=== PATIENT | female | born 1970 | race Caucasian/White ===

== ENCOUNTER 2016-05-01 07:27 | Emergency (ER) | payer MEDICAID ==
[~2016-05-01] VITALS: Ht 152.4 cm; Wt 69.0 kg
[2016-05-01 07:34] VITALS: Ht 152.4 cm; Wt 69.0 kg
[2016-05-01 07:46] LABS: URINE BLOOD (Dip) POC Trace-intact (NEGATIVE)
[2016-05-01] MEDS ORDERED: ONDANSETRON (ODT) 4 MG TAB ODT STA (07:47)
--- NOTE | 2016-05-01 07:53 | ERD ---
ER Documentation Chief Complaint Date/Time DATE: 05/01/16 TIME: 07:50 Chief Complaint VAG BLEED DENIES PREG X 1 WEEK HPI 46-year-old female with a history of gastritis presents to the emergency department for lower abdominal pain and intermittent vaginal bleeding for the past week. Patient describes it pain today as a sharp 8 out of 10 constant pain located near the suprapubic region and radiating to her left flank. Patient denies any alleviating factors including positional changes. She states she has not attempted to treat her pain with any medication thus far. Patient denies any nausea, vomiting, diarrhea, vaginal discharge, fever, recent illness, chest pain, shortness of breath she states her last normal period was 3 months ago and normal for her. Last bowel movement was this morning and normal for her. ROS All systems reviewed and are negative except as per history of present illness. Medications Home Meds Active Scripts Ibuprofen* (Motrin*) 600 Mg Tab, 600 MG PO Q6, #30 TAB Prov:EVGENY MOHAMUD PA-C 05/01/16 Metronidazole* (Flagyl*) 500 Mg Tablet, 500 MG PO TID for 5 Days, TAB Prov:EVGENY MOHAMUD PA-C 05/01/16 Allergies Allergies: Coded Allergies: Penicillins (Verified Allergy, Unknown, gastritis and hives, 05/01/16) amoxicillin (Verified Allergy, Unknown, gastritis and hives, 05/01/16) tetracycline (Verified Allergy, Unknown, gastritis and hives, 05/01/16) PMhx/Soc Medical and Surgical Hx: pt denies Medical Hx, pt denies Surgical Hx Physical Exam Vitals Vital Signs Date Time Temp Pulse Resp B/P Pulse Ox O2 Delivery O2 Flow Rate FiO2 05/01/16 07:34 98.0 63 18 120/69 98 Physical Exam Const: Well-nourished, well-developed, nontoxic-appearing, well-hydrated Head: Atraumatic Eyes: Normal Conjunctiva ENT: Normal External Ears, Nose and Mouth. Neck: Full range of motion..~ No meningismus. Resp: Clear to auscultation bilaterally, no wheezes, rhonchi, Cardio: Regular rate and rhythm, no murmurs Abd: Soft, slightly tender at suprapubic region of lower abdomen, non distended. Normal bowel sounds Skin: No petechiae or rashes Back: Mild tenderness to palpation of left flank. No midline tenderness Ext: No cyanosis, or edema Neur: Awake and alert Psych: Normal Mood and Affect Pelvic exam: No active bleeding identified. Excessive Thin greyish green discharge noted. No adnexal tenderness. No cervical motion tenderness. Result Diagram: 05/01/16 1050 05/01/16 1050 Results 24 hrs Laboratory Tests Test 05/01/16 07:47 05/01/16 10:50 Bedside Urine Blood Trace-intact Bedside Urine Glucose (UA) Negative Bedside Urine Ketones (LAB) Negative Bedside Urine Leukocyte Esterase (L 1+ Bedside Urine Nitrite (LAB) Negative Bedside Urine Protein (LAB) Negative Bedside Urine pH (LAB) 5.0 Alanine Aminotransferase (ALT/SGPT) 37IU/L Albumin 4.8g/dl Albumin/Globulin Ratio 1.14 Alkaline Phosphatase 83IU/L Anion Gap 17 Aspartate Amino Transf (AST/SGOT) 34IU/L Basophils # 0.010^3/ul Basophils % 0.6% Blood Urea Nitrogen 10mg/dl Calcium Level 9.8mg/dl Carbon Dioxide Level 27mmol/L Chloride Level 105mmol/L Creatinine 0.64mg/dl Direct Bilirubin 0.00mg/dl Eosinophils # 0.210^3/ul Eosinophils % 2.8% Globulin 4.20g/dl Glucose Level 83mg/dl Hematocrit 38.5% Hemoglobin 13.3g/dl Indirect Bilirubin 0.1mg/dl Lymphocytes # 2.810^3/ul Lymphocytes % 49.2% Mean Corpuscular Hemoglobin 31.7pg Mean Corpuscular Hemoglobin Concent 34.4g/dl Mean Corpuscular Volume 92.2fl Mean Platelet Volume 7.5fl Monocytes # 0.510^3/ul Monocytes % 8.2% Neutrophils # 2.210^3/ul Neutrophils % 39.2% Nucleated Red Blood Cells # 0.010^3/ul Nucleated Red Blood Cells % 0.0/100WBC Platelet Count 73985^3/UL Potassium Level 4.3mmol/L Red Blood Count 4.1810^6/ul Red Cell Distribution Width 13.4% Sodium Level 145mmol/L Total Bilirubin 0.1mg/dl Total Protein 9.0g/dl White Blood Count 5.710^3/ul Current Medications Medications (Trade) Dose Ordered Sig/Marina Route PRN Reason Start Time Stop Time Status Last Admin Dose Admin Acetaminophen/ Hydrocodone Bitart ([place] (10)) 1 tab ONCE ONCE PO 05/01/16 08:00 05/01/16 08:01 DC 05/01/16 07:55 Ondansetron HCl (Zofran Odt) 4 mg ONCE STAT ODT 05/01/16 07:47 05/01/16 07:50 DC 05/01/16 07:55 Azithromycin (Zithromax) 1,000 mg ONCE ONCE PO 05/01/16 10:30 05/01/16 10:31 DC 05/01/16 10:53 Ceftriaxone Sodium (Rocephin) 250 mg ONCE ONCE IM 05/01/16 10:30 05/01/16 10:31 DC 05/01/16 10:53 Ketorolac Tromethamine (Toradol) 30 mg ONCE STAT IM 05/01/16 10:29 05/01/16 10:30 DC Lidocaine (Xylocaine 1% (Mpf)) 10 ml ONCE PRN INJ Rocephin 05/01/16 10:30 Procedures/MDM PROCEDURE: US Pelvis. CLINICAL INDICATION: Left pelvic pain. TECHNIQUE: Sonographic evaluation of the pelvis was performed utilizing both transabdominal and transvaginal technique.Curved array transabdominal transducer technique as well as a high frequency endovaginal probe was utilized. Images were reviewed on the high-resolution PACS workstation. COMPARISON: No prior studies are available for comparison. FINDINGS: The uterus is normal in size, echogenicity, and morphology and measures 5.9 x 3.1 x 3.8 cm. The endometrium is normal measuring 2.2 mm. The left ovary measures 1.8 x 0.8 x 1.1 cm in dimension. The right ovary was not visualized.. . There are no adnexal masses. There is no significant free fluid in the pelvis. No other incidental abnormality is identified. IMPRESSION: 1. Unremarkable ultrasound of the pelvis. RPTAT: JJ .Dandy Aguirre MD, MD Date Time Electronically viewed and signed by .Dandy Aguirre MD, MD on 05/01/2016 09:21 .L/ CC: EVGENY MOHAMUD PA-C 46-year-old female presents to the emergency department with ongoing lower abdominal pain and vaginal bleeding 1 week. Vital signs were reviewed. Patient is afebrile. Patient is not hypoxic. Patient is normotensive. CBC showed no evidence of systemic infection or severe anemia. CMP showed no evidence of electrolyte abnormalities, severe acidosis, alkalosis , renal failure, or liver disease. UA showed no evidence of acute infection or hematuria. Urine test was negative. Given these findings, the patients presentation is most consistent with []. I have a low suspicion for []. Patient received 1 g azithromycin as well as 250 mg Rocephin Patient treated outpatient with metronidazole Patient to continue Motrin for pain as needed Patient instructed to follow-up with DEBT COLLECTOR specialist if pain and bleeding persists Based on patient's history of present illness and physical examination the decision was made to discharge. The patient was re-evaluated after ED treatment and stabilizing measures, and symptoms have improved. There is no evidence of life threatening injuries or illnesses at this time. On re-examination, patient resting in no distress, stable vital signs, reports feeling better and safe for discharge with outpatient follow up with PMD in 1-2 days. Patient given return precautions. EVGENY MOHAMUD PA-C May 01, 2016 07:53
[2016-05-01] MEDS ORDERED: HYDROCODONE/APAP (10/325) TAB PO ONE (08:00)
--- NOTE | 2016-05-01 09:21 | RADRPT ---
PROCEDURE: US Pelvis. CLINICAL INDICATION: Left pelvic pain. TECHNIQUE: Sonographic evaluation of the pelvis was performed utilizing both transabdominal and tr ansvaginal technique.Curved array transabdominal transducer technique as well as a high frequency en dovaginal probe was utilized. Images were reviewed on the high-resolution PACS workstation. COMPARISON: No prior studies are available for comparison. FINDINGS: The uterus is normal in size, echogenicity, and morphology and measures 5.9 x 3.1 x 3.8 cm. The en dometrium is normal measuring 2.2 mm. The left ovary measures 1.8 x 0.8 x 1.1 cm in dimension. Th e right ovary was not visualized.. . There are no adnexal masses. There is no significant free flui d in the pelvis. No other incidental abnormality is identified. IMPRESSION: 1. Unremarkable ultrasound of the pelvis. RPTAT: JJ .Dandy Aguirre MD, MD Date Time Electronically viewed and signed by .Dadny Aguirre MD, on 05/01/2016 09:21 .L/
[2016-05-01] MEDS ORDERED: IBUP-1542 PO (10:23)
[2016-05-01] MEDS ORDERED: METR500T PO (10:23)
[2016-05-01] MEDS ORDERED: KETOROLAC 30 MG INJ IM STA (10:29)
[2016-05-01] MEDS ORDERED: AZITHROMYCIN 250 MG TAB PO ONE (10:30)
[2016-05-01] MEDS ORDERED: CEFTRIAXONE 250 MG INJ IM ONE (10:30)
[2016-05-01] MEDS ORDERED: LIDOCAINE 1% (MPF) 30 ML INJ INJ PRN (10:30)
[2016-05-01 10:58] LABS: BASOPHILS % 0.6 % (0.0-2.0); EOSINOPHILS # 0.2 10^3/ul (0.0-0.5); EOSINOPHILS % 2.8 % (0.0-7.0); HEMATOCRIT 38.5 % (37.0-47.0); HEMOGLOBIN 13.3 g/dl (12.0-16.0); LYMPHOCYTES # 2.8 10^3/ul (0.8-2.9); LYMPHOCYTES % 49.2 % (15.0-51.0); MEAN CORPUSCULAR HEMOGLOBIN 31.7 pg (29.0-33.0); MEAN CORPUSCULAR HGB CONC 34.4 g/dl (32.0-37.0); MEAN CORPUSCULAR VOLUME 92.2 fl (82.0-101.0); MEAN PLATELET VOLUME 7.5 fl (7.4-10.4); MONOCYTE # 0.5 10^3/ul (0.3-0.9); MONOCYTES % 8.2 % (0.0-11.0); NEUTROPHIL # 2.2 10^3/ul (1.6-7.5); NEUTROPHILS % 39.2 % (39.0-77.0); PLATELET COUNT 264 10^3/UL (140-440); RED BLOOD COUNT 4.18 10^6/ul (4.20-5.40); RED CELL DISTRIBUTION WIDTH 13.4 % (11.5-14.5); UNCORRECTED WBC 5.7 10^3/ul (4.8-10.8); WHITE BLOOD COUNT 5.7 10^3/ul (4.8-10.8)
[2016-05-01 11:03] LABS: CONDITION 1
[2016-05-01 11:04] LABS: ALBUMIN 4.8 g/dl (3.3-4.9); POTASSIUM 4.3 mmol/L (3.5-5.1)
[2016-05-01 11:06] LABS: CREATININE 0.64 mg/dl (0.44-1.00)
[2016-05-01 11:07] LABS: ALBUMIN/GLOBULIN RATIO 1.14; BILIRUBIN,INDIRECT 0.1 mg/dl (0-1.1); BILIRUBIN,TOTAL 0.1 mg/dl (0.2-1.3); CALCIUM 9.8 mg/dl (8.4-10.2)
[2016-05-01 13:16] LABS: ADD UMIC YES; URINE BILIRUBIN (Dip) NEGATIVE (NEGATIVE); URINE BLOOD (Dip) NEGATIVE (NEGATIVE); URINE COLOR LT. YELLOW (YELLOW); URINE GLUCOSE (Dip) NEGATIVE (NEGATIVE); URINE KETONES (Dip) NEGATIVE (NEGATIVE); URINE LEUKOCYTE ESTERASE (Dip) 2+ (NEGATIVE); URINE NITRITE (Dip) NEGATIVE (NEGATIVE); URINE TOTAL PROTEIN (Dip) NEGATIVE (NEGATIVE); URINE UROBILINOGEN (Dip) 0.2 E.U./dL (0.1-1.0)
[2016-05-01 13:58] LABS: BACTERIA,URINE FEW; URINE RBCS NONE SEEN /HPF (0)
== END 2016-05-01 10:00 | disposition home or self-care (01) ==
LOC: FTE 07:27
DX: R10.30 Lower abdominal pain, unspecified (principal); N93.9 Abnormal uterine and vaginal bleeding, unspecified; R10.2 Pelvic and perineal pain
CPT/HCPCS: 76830; 76856; 80053; 81001; 81003; 85025; 87591; J0696; Z7610; 96372

== ENCOUNTER 2016-08-27 07:17 | Emergency (ER) | payer MEDICAID ==
[~2016-08-27] VITALS: Ht 154.9 cm; Wt 62.5 kg
[~2016-08-27 07:17] MED LIST: IBUP-1542 PO; METR500T PO
[2016-08-27 07:20] VITALS: Ht 154.9 cm; Wt 62.5 kg
[2016-08-27 07:42] LABS: URINE BLOOD (Dip) POC Trace-lysed (NEGATIVE)
[2016-08-27] MEDS ORDERED: CEFTRIAXONE 250 MG INJ IM ONE (08:30)
[2016-08-27] MEDS ORDERED: DOXY100T20 PO (08:48)
[2016-08-27] MEDS ORDERED: CIPR500T4 PO (08:48)
[2016-08-27] MEDS ORDERED: METR500T PO (08:49)
--- NOTE | 2016-08-27 08:56 | ERD ---
ER Documentation Chief Complaint Date/Time DATE: 08/27/16 TIME: 08:50 Chief Complaint painful urination with itching since last night HPI Patient is a 46-year-old female with a past medical history of "pelvic infections" who presents to the emergency department with concerns of dysuria and frequency started last night. Patient reports burning pain with urination. Patient denies any hematuria, flank pain or back pain. Patient also states she has had yellow/green vaginal discharge for last 4 months. Patient states she seen her GARBAGE TRUCK DRIVER on numerous encounters was treated with "antibiotics for pelvic infections." Patient is unsure if she completed full courses. Patient denies any fevers, chills, nausea, vomiting, abdominal pain, pelvic pain. She denies any excessive vaginal bleeding. Patient states that she is currently sexually active with her . Patient denies any new sexual partners. ROS All systems reviewed and are negative except as per history of present illness. Medications Home Meds Active Scripts Metronidazole* (Flagyl*) 500 Mg Tablet, 500 MG PO BID for 14 Days, TAB Prov:ISMA KUHN PA-C 08/27/16 Doxycycline Hyclate* (Doxycycline Hyclate*) 100 Mg Tablet.dr, 100 MG PO BID for 14 Days, TAB Prov:ISMA KUHN PA-C 08/27/16 Ciprofloxacin Hcl* (Ciprofloxacin Hcl*) 500 Mg Tablet, 500 MG PO BID for 3 Days , TAB Prov:ISMA KUHN PA-C 08/27/16 Ibuprofen* (Motrin*) 600 Mg Tab, 600 MG PO Q6, #30 TAB Prov:EVGENY MOHAMUD PA-C 05/01/16 Metronidazole* (Flagyl*) 500 Mg Tablet, 500 MG PO TID for 5 Days, TAB Prov:EVGENY MOHAMUD PA-C 05/01/16 Allergies Allergies: Coded Allergies: Penicillins (Verified Allergy, Unknown, gastritis and hives, 05/01/16) amoxicillin (Verified Allergy, Unknown, gastritis and hives, 05/01/16) tetracycline (Verified Allergy, Unknown, gastritis and hives, 05/01/16) PMhx/Soc History of Surgery: No Anesthesia Reaction: No Hx Neurological Disorder: No Hx Respiratory Disorders: No Hx Cardiac Disorders: No Hx Psychiatric Problems: No Hx Miscellaneous Medical Probl: Yes (gastritis) Hx Alcohol Use: No Hx Substance Use: No Hx Tobacco Use: No Smoking Status: Never smoker FmHx Family History: No diabetes Physical Exam Vitals Vital Signs Date Time Temp Pulse Resp B/P Pulse Ox O2 Delivery O2 Flow Rate FiO2 08/27/16 07:20 98.6 87 16 125/67 98 Physical Exam GENERAL: Well-developed, well-nourished female. Appears in no acute distress. HEAD: Normocephalic, atraumatic. EYES: Pupils are equally reactive bilaterally. EOMs grossly intact. No conjunctival erythema. ENT: Moist mucous membranes. No uvula deviation. No kissing tonsils. NECK: Supple. No meningismus. Normal range of motion of the neck. LUNG: Clear to auscultation bilaterally. No rhonchi, wheezing, rales or coarse breath sounds. HEART: Regular rate and rhythm. No murmurs, rubs or gallops. ABDOMEN: No scars, ecchymosis or rashes noted. Soft, nontender, and nondistended. Positive bowel sounds in all four quadrants. No rebound tenderness , no guarding. (-) McBurney's point tenderness. No CVA tenderness. FEMALE GENITALIA: Exam was completed with a female registered vascular technologist (rvt) tumbler dyeing machine operator present. Normal external female genitalia. Normal vaginal mucosal without lesions. Cervix visualized, normal in appearance with copious yellow, thick mucopurulent discharge noted. No adnexal tenderness noted. No cervical motion tenderness. BACK: No midline tenderness. EXTREMITIES: Equal pulses bilaterally. No peripheral clubbing, cyanosis or edema. No unilateral leg swelling. NEUROLOGIC: Alert and oriented. Moving all four extremities without any difficulty. Normal speech. Steady gait. SKIN: Normal color. Warm and dry. No rashes or lesions. Results 24 hrs Laboratory Tests Test 08/27/16 07:44 Bedside Urine pH (LAB) 5.5 Bedside Urine Protein (LAB) Negative Bedside Urine Glucose (UA) Negative Bedside Urine Ketones (LAB) Negative Bedside Urine Blood Trace-lysed Bedside Urine Nitrite (LAB) Negative Bedside Urine Leukocyte Esterase (L 2+ Current Medications Medications (Trade) Dose Ordered Sig/Marina Route PRN Reason Start Time Stop Time Status Last Admin Dose Admin Ceftriaxone Sodium (Rocephin) 250 mg ONCE ONCE IM 08/27/16 08:30 08/27/16 08:32 DC 08/27/16 09:04 Procedures/MDM MEDICAL DECISION MAKING: This is a 46-year-old female presents with dysuria, frequency and yellow-green vaginal discharge. Patient states her frequency and dysuria started last night. Patient reports vaginal discharge for the last 4 months. Vital signs were reviewed. Patient was afebrile. Urine dip showed 2+ leukocyte esterase, no nitrites. Urine was negative. Pelvic exam demonstrated copious mucopurulent discharge in the cervix, no CMT, no adnexal tenderness. Patient's history of recurrent pelvic infections, we will treat the patient with antibiotics at this time. Before giving the patient any medications, I reviewed the patient's allergies with her. Patient states that her gastritis gets worse when taking antibiotics. Patient denies a history of angioedema or anaphylactic reactions when taking the antibiotics listed as possible allergies. Previous chart review showed that patient was given Azithromycin and Rocephin, with no adverse effects. Patient was given ceftriaxone 250 mg IM. Patient did not display any signs of an allergic reactions or anaphylaxis while here in the emergency department. Given these findings, the patient;s presentation is most consistent with urinary tract infection and cervicitis. I have a much lower clinical concern for pyelonephritis, nephrolithiasis, appendicitis, diverticulitis, constipation, ectopic , ovarian torsion, or tubo-ovarian abscess. Patient's urine was sent for gonorrhea and chlamydia testing. Results pending. PRESCRIPTIONS: Ciprofloxacin, doxycycline, metronidazole DISCHARGE: At this time, patient is stable for discharge and outpatient management. I discussed the case with my supervising physician, Dr. Fagan, who agrees the above treatment plan. I have instructed the patient to follow-up with his/her primary care physician in 1-2 days. Patient was advised to follow-up with her GARBAGE TRUCK DRIVER in the next 1 to 2 days. Patient given referral information. Patient advised to complete full course of antibiotics as prescribed its entirety. Patient instructed on the importance of antibiotic compliance. I have instructed the patient to promptly return to the ER at any time for any new or worsening symptoms including increased pain, fever, nausea, vomiting, urinary changes or weakness. The patient and/or family expressed understanding of and agreement with this plan. All questions were answered. Home care instructions were provided. Departure Diagnosis: Primary Impression: Pelvic infection Additional Impression: UTI (urinary tract infection) Urinary tract infection type: site unspecified Hematuria presence: without hematuria Qualified Code: N39.0 - Urinary tract infection without hematuria, site unspecified Condition: Stable Patient Instructions: Talking About Pelvic Inflammatory Disease (PID) Referrals: GARBAGE TRUCK DRIVER [place] [id number] [facility] [address] [place] [address] OFFICE FAX , [facility] [address] [place], [place] [id number] [address], [place] [address] [place] [address] [address], [facility] [address] [facility] [facility] [address] [address], [facility] [address] [place] [address] [facility] [address] [place] [address] [address] [facility] [id number] [address] [facility] [address] [facility] [address] [address], [facility] [address] [facility]. [address], [facility] [address] [facility] [address] [place], [place] [id number] Additional Instructions: Call your primary care doctor TOMORROW for an appointment during the next 1-2 days.See the doctor sooner or return here if your condition worsens before your appointment time. ISMA KUHN PA-C August 27, 2016 08:56
== END 2016-08-27 09:05 | disposition home or self-care (01) ==
LOC: FTE 07:17
DX: N73.9 Female pelvic inflammatory disease, unspecified (principal); N39.0 Urinary tract infection, site not specified; R10.2 Pelvic and perineal pain
CPT/HCPCS: 81003; 87591; 96372; J0696; Z7502